=== PATIENT | male | born 1960 | race Caucasian/White ===

== ENCOUNTER 2022-05-14 14:27 | Outpatient (CLI) | payer OTHER, SELFPAY ==
[2022-05-14 09:34] LABS: Albumin* 4.4 g/dL (3.3-5.0); Chloride* 99 mmol/L (96-114); Sodium* 136 mmol/L (135-149)
[2022-05-14 09:35] LABS: Potassium* 4.7 mmol/L (3.6-5.1)
[2022-05-14 09:36] LABS: Cholesterol* 139 mg/dL (90-199)
[2022-05-14 09:37] LABS: Alanine Aminotransferase* 46 U/L (4-50); Alkaline Phosphatase* 96 U/L (40-150); Aspartate Amino Transferase* 58 U/L (12-35); Blood Urea Nitrogen* 17 mg/dL (7-30); Calcium* 9.9 mg/dL (8.4-10.6); Carbon Dioxide* 27 mmol/L (20-32); Creatinine* 0.7 mg/dL (0.5-1.5); Estimated Glomerular Filt Rate 105 ml/min; Glucose* 198 mg/dL (60-115); HDL Cholesterol* 28 mg/dL (>=40); LDL Cholesterol Calculated 42 mg/dL (<100); Total Protein* 6.8 g/dL (6.0-8.3); Triglycerides* 347 mg/dL (40-149)
[2022-05-14 09:41] LABS: Creatinine Urine 84.2 mg/dL
[2022-05-14 09:45] LABS: Microalbumin Creatinine Ratio 10 mg/g (0-30); Microalbumin Urine < 1 mg/dL
[2022-05-14 10:14] LABS: PSA Screen* < 0.06 ng/mL (0.10-4.00)
== END 2022-05-14 14:28 | disposition home or self-care (01) ==
PROVIDERS: PCP Family Medicine; Visit Provider Family Medicine
DX: E11.9 Type 2 diabetes mellitus without complications (principal); E66.9 Obesity, unspecified; I10 Essential (primary) hypertension; E78.1 Pure hyperglyceridemia; Z85.46 Personal history of malignant neoplasm of prostate; Z12.5 Encounter for screening for malignant neoplasm of prostate
CPT/HCPCS: 80053; 80061; 82043; 82570; 84153

== ENCOUNTER 2022-05-21 17:53 | Outpatient (CLI) | payer OTHER, SELFPAY | END 2022-05-21 17:54 | disposition home or self-care (01) | LOC: NFLDUCREF 17:53 | PROVIDERS: PCP Family Medicine; Visit Provider Nurse Practitioner Family | DX: L08.9 Local infection of the skin and subcutaneous tissue, unspecified (principal) | CPT/HCPCS: 87070 ==

== ENCOUNTER 2023-03-11 15:51 | Outpatient (CLI) | payer OTHER, SELFPAY | END 2023-03-11 15:52 | disposition home or self-care (01) | LOC: NFLDREF 03-13 13:47 | PROVIDERS: PCP Family Medicine; Referring Provider Family Medicine; Visit Provider Nurse Practitioner Family | DX: N39.0 Urinary tract infection, site not specified (principal); Z13.89 Encounter for screening for other disorder | CPT/HCPCS: 87086; 87186 ==

== ENCOUNTER 2023-03-25 15:18 | Outpatient (CLI) | payer OTHER, SELFPAY | END 2023-03-25 15:19 | disposition home or self-care (01) | LOC: NFLDREF 03-26 17:50 | PROVIDERS: PCP Family Medicine; Referring Provider Family Medicine; Visit Provider Nurse Practitioner Family | DX: R30.0 Dysuria (principal); N30.00 Acute cystitis without hematuria | CPT/HCPCS: 87086; 87186 ==

== ENCOUNTER 2023-05-27 08:20 | Outpatient (CLI) | payer OTHER, SELFPAY | END 2023-05-27 08:21 | disposition home or self-care (01) | LOC: NFLDREF 05-30 02:01 | PROVIDERS: PCP Family Medicine; Referring Provider Family Medicine; Visit Provider Family Medicine | DX: Z00.00 Encounter for general adult medical examination without abnormal findings (principal); E11.9 Type 2 diabetes mellitus without complications; E66.9 Obesity, unspecified; N39.0 Urinary tract infection, site not specified; E78.1 Pure hyperglyceridemia; I10 Essential (primary) hypertension; R73.01 Impaired fasting glucose; R33.9 Retention of urine, unspecified; Z12.5 Encounter for screening for malignant neoplasm of prostate | CPT/HCPCS: 80053; 80061; 82043; 82570; 84153 ==

== ENCOUNTER 2024-07-06 07:30 | Outpatient (CLI) | payer OTHER, SELFPAY | END 2024-07-06 07:31 | disposition home or self-care (01) | PROVIDERS: PCP Family Medicine; Visit Provider Family Medicine | DX: E11.9 Type 2 diabetes mellitus without complications (principal); I10 Essential (primary) hypertension; E78.1 Pure hyperglyceridemia; Z12.5 Encounter for screening for malignant neoplasm of prostate | CPT/HCPCS: 80053; 80061; 82043; 82570; G0103 ==

== ENCOUNTER 2024-07-23 08:36 | Outpatient (CLI) | payer OTHER, SELFPAY ==
--- NOTE | 2024-07-23 10:08 | W.ANESCHARGE ---
Anesthesia Charges Start Date/Time Anesthesia Start Date: 07/23/24 Anesthesia Start Time: 09:20 Stop Date/Time Anesthesia Stop Date: 07/23/24 Anesthesia Stop Time: 10:04
--- NOTE | 2024-07-23 10:09 | W.ANESCHARGE ---
Anesthesia Charges Start Date/Time Anesthesia Start Date: 07/23/24 Anesthesia Start Time: 09:20 Stop Date/Time Anesthesia Stop Date: 07/23/24 Anesthesia Stop Time: 10:04
== END 2024-07-23 08:37 | disposition home or self-care (01) ==
LOC: OP CLINIC 08:37
PROVIDERS: PCP Family Medicine; Visit Provider Surgery
DX: Z12.11 Encounter for screening for malignant neoplasm of colon (principal); D12.2 Benign neoplasm of ascending colon; D12.3 Benign neoplasm of transverse colon; D12.5 Benign neoplasm of sigmoid colon; D12.7 Benign neoplasm of rectosigmoid junction; Z86.0100 Personal history of colon polyps, unspecified
CPT/HCPCS: 00811; 45385; 88305; J2704

== ENCOUNTER 2024-09-24 06:16 | Day surgery (SDC) | payer OTHER, SELFPAY ==
[2024-09-24] VITALS (8 sets, daily range): BP systolic 107–122; BP diastolic 65–73; PULSE 66–72; RESP 12–16; TEMP 36.7; O2SAT 94–99; BMI 34.7
[2024-09-24] MEDS: SODIUM CHLORIDE 0.9 % (FLUSH) 10 ML SYRINGE IVF (06:48)
[2024-09-24] MEDS: CEFAZOLIN 2 GM INJ IVP (07:11)
[2024-09-24] MEDS: BUPIVACAINE 0.5 %/EPI 1:200K INJECTION (07:11)
[2024-09-24] MEDS: LIDOCAINE 2%-EPI 1:200,000 20 ML INFILTRATI (07:11)
--- NOTE | 2024-09-24 07:44 | PM.ORPRC ---
Procedure Note Date of procedure: 09/24/24 Procedure: Preop diagnosis: Right hand middle finger stenosing tenosynovitis Postop diagnosis: Right hand middle finger stenosing tenosynovitis Procedure: Right hand middle finger A1 noam release Anesthesia: Local Surgeon: Abhilash Pineda MD assistant program manager: JAVID Zaidi EBL: 1 mL Complications: None Specimens: None Drains: None Preoperative antibiotics: None Indications: The patient has a history of right upper extremity middle finger painful catching and locking. Despite appropriate non operative management including flexor tendon sheath corticosteroid injections they continue to have symptoms. Operative intervention was recommended. The risks, benefits alternatives and expected outcomes were discussed in detail. These included but were not limited to: Infection, bleeding, injury to blood vessel or nerve, venous thromboembolism. All questions were answered to their satisfaction. The patient was placed supine on the operating room table. Local anesthesia was established with 0.5% Marcaine with epinephrine and 2% lidocaine with epinephrine. The hand was prepped and draped in usual sterile fashion. A transverse incision was made centered over the base of the middle finger in the distal palmar crease. Subcutaneous dissection was taken through the palmar fascia to the flexor tendons with the tenotomy scissors. The A1 noam was released with the 15 blade and tenotomy scissors. Active flexion and extension of the finger shows no catching or locking, no bowstringing of the flexor tendons. The wound was closed with interrupted nylon sutures. A dry dressing was applied. Sponge and needle counts were correct x 2. The patient tolerated the procedure well, there were no apparent complications. They were sent to same day surgery in satisfactory condition. Plan: Use of the hand as tolerates. Discontinue the intraoperative dressing on postoperative day 3 and may get the wound wet as tolerates. Follow up in the office in 2 weeks for a wound check and suture removal.
== END 2024-09-24 08:05 | disposition home or self-care (01) ==
LOC: OR 06:17
PROVIDERS: PCP Family Medicine; Visit Provider Orthopaedic Surgery
PROC: (CPT 26055; principal; 2024-09-24 07:15)
DX: M65.331 Trigger finger, right middle finger (principal); M65.841 Other synovitis and tenosynovitis, right hand
CPT/HCPCS: 26055; J0690; J3490

== ENCOUNTER 2025-04-26 07:45 | Outpatient (CLI) | payer OTHER, SELFPAY | END 2025-04-26 07:46 | disposition home or self-care (01) | LOC: NFLDREF 04-29 07:45 | PROVIDERS: PCP Family Medicine; Referring Provider Family Medicine; Visit Provider Family Medicine | DX: E11.9 Type 2 diabetes mellitus without complications (principal) | CPT/HCPCS: 80053; 80061; 82043; 82570; G0103 ==